=== PATIENT | male | born 1955 | race Caucasian/White ===

== ENCOUNTER 2016-11-22 15:16 | Emergency (ER) | payer OTHER ==
[2016-11-22 15:17] VITALS: BMI 25.0
[2016-11-22 15:21] VITALS: BP 134/91; TEMP 97
--- NOTE | 2016-11-22 15:27 | ED.PDOC ---
General ED Provider: Dr. RUBY ALVAREZ JR Chief Complaint: Chest Pain Stated Complaint: started having left sided non radiating chest pain also very dizzy with headache and weak[End]1 day ago HAS FELT CHEST PAIN ON AND OFF COMLETE LOSS OF ENERGY PAST COUPLE OF HOURS 97.0 77 18 94 134/91 12/15 Time Seen by Physician: 15:27 Mode of Arrival: Walk-In Information Source: Patient, Family Exam Limitations: No limitations Primary Care Provider: JAIMEE JARAMILLO Nursing and Triage Documentation Reviewed and Agree: No Review of Systems - Review Of Systems Constitutional: Reports: Malaise, Weakness Eyes: Reports: Blurred vision Ears, Nose, Mouth, Throat: Reports: No symptoms Respiratory: Reports: No symptoms Cardiac: Reports: Chest pain, Lightheadedness GI: Reports: No symptoms : Reports: No symptoms Musculoskeletal: Reports: No symptoms Skin: Reports: No symptoms Neurological: Reports: Headache, Weakness Endocrine: Reports: No symptoms Hematologic/Lymphatic: Reports: No symptoms All Other Systems: Other Past Medical History - Past Medical History Previously Healthy: Yes Endocrine: Reports: None Cardiovascular: Reports: CAD, [place] Respiratory: Reports: COPD Hematological: Reports: None Gastrointestinal: Reports: None Genitourinary: Reports: None Neuro/Psych: Reports: Migraine Musculoskeletal: Reports: Arthritis, Back Pain Cancer: Reports: Other - Surgical History General Surgical History: Reports: Orthopedic, Back Surgery - Family History Family History: Reports: Unknown - Social History Smoking Status: Current every day smoker, Heavy tobacco smoker Hx Substance Use: No Alcohol Screening: None Physical Exam - Physical Exam Appearance: Well-appearing Eyes: GENEVA, EOMI, Conjunctiva clear ENT: Ears normal, Nose normal, Oropharynx normal Neck: Supple Respiratory: Airway patent, Breath sounds clear, Breath sounds equal, Respirations nonlabored Cardiovascular: RRR, Pulses normal, No rub, No murmur GI/: Soft, Nontender, No masses, Bowel sounds normal, No Organomegaly Musculoskeletal: Normal strength, ROM intact, No edema, No calf tenderness Skin: Warm, Dry, Normal color Neurological: Sensation intact, Motor intact, Reflexes intact, Cranial nerves intact (TO TESTING), Alert, Oriented Psychiatric: Affect appropriate, Mood appropriate Interpretation - Radiology Interpretation Radiology Interpretation By: Radiologist Radiology Results: Negative Exam Interpreted: CXR - EKG Interpretation Time of EKG #1: 15:27 Rate: Normal Rhythm: Sinus Ectopy: None [place]: NL ST Segment: Normal Re-Evaluation - Re-Evaluation Time of Re-Evaluation: 17:16 (CALLING DR MARCUS MERCADO) Status: Improved - Re-Evaluation Time of Re-Evaluation: 18:28 (WAS FEELING"GREAT" NOW FEELING WEAK DIZZY( LIGHTHEADED) [place] [employer]- WILL OBTAIN REPEAT EKG) Status: Worse Physician Notification - Case Discussed Physician Notified: MARCUS MERCADO PAGED [id number] AT [id number]- ACCEPTS TO [facility] Time of Notification: 17:32 (PAGED) Critical Care Note - Critical Care Note Total Time (mins): 20 Course - Course Hematology/Chemistry: 11/22/16 15:26 11/22/16 15:26 Orders, Labs, Meds: Lab Review 11/22/16 15:26 WBC 11.91 H RBC 5.06 Hgb 14.9 Hct 43.5 MCV 86.0 MCH 29.4 MCHC 34.3 RDW Coeff of Izzy 12.6 Plt Count 215 Immature Gran % (Auto) 0.3 Neut % (Auto) 67.0 Lymph % (Auto) 22.7 Lipscomb % (Auto) 7.1 Eos % (Auto) 2.4 Baso % (Auto) 0.5 Immature Gran # (Auto) 0.0 Neut # 8.0 H Lymph # 2.7 Lipscomb # 0.8 Eos # 0.3 Baso # 0.1 D-Dimer 0.35 Sodium 138 Potassium 3.7 Chloride 105 Carbon Dioxide 23 Anion Gap 13.7 BUN 21 H Creatinine 0.85 Estimated GFR (MDRD) 91.00 BUN/Creatinine Ratio 24.70 Glucose 98 Calcium 9.2 Total Bilirubin 0.53 AST 25 ALT 36 Alkaline Phosphatase 106 Total Creatine Kinase 193 CK-MB (CK-2) 1.0 CK-MB (CK-2) % 0.23090 Troponin I 0.0200 B-Natriuretic Peptide 11 Total Protein 7.2 Albumin 3.8 Globulin 3.4 Albumin/Globulin Ratio 1.12 Plasma/Serum Alcohol < 10.0 Orders Category Date Time Status EKG-(ED ONLY) Stat CARDIO 11/22/16 15:23 Completed EKG-(ED ONLY) Stat CARDIO 11/22/16 18:27 Ordered ED SHAKER OPERATOR APPLIED .ONCE EMERGENCY 11/22/16 15:23 Active ED IV/MEDIPORT/POWERPORT .ONCE EMERGENCY 11/22/16 15:23 Active B-TYPE NATRIURETIC PEPTIDE Stat LAB 11/22/16 15:26 Completed CBC W/ AUTO DIFF Stat LAB 11/22/16 15:26 Completed COMPREHENSIVE METABOLIC PANEL Stat LAB 11/22/16 15:26 Completed CREATINE KINASE Stat LAB 11/22/16 15:26 Completed D-DIMER Stat LAB 11/22/16 15:26 Completed ETOH LEVEL [BLOOD ALCOHOL] Stat LAB 11/22/16 15:26 Completed TROPONIN I Stat LAB 11/22/16 15:26 Completed 0.9 % Sodium Chloride [Saline Flush] MEDS 11/22/16 15:23 Active 1 syr IVF PRN PRN CHEST, 1V AP ONLY Stat RADS 11/22/16 15:23 Completed Medications Generic Name Dose Route Start Last Admin Trade Name Freq PRN Reason Stop Dose Admin Sodium Chloride 1 syr 11/22/16 15:23 Saline Flush IVF PRN PRN To flush IV Vital Signs: Temp Pulse Resp BP Pulse Ox 11/22/16 15:17 97.0 F L 77 18 134/91 H 94 L JAREN Risk Score JAREN Risk Score: Risk Score Odds of by 30D 0 0.1 (0.1-0.2) 1 0.3 (0.2-0.3) 2 0.4 (0.3-0.5) 3 0.7 (0.6-0.9) 4 1.2 (1.0-1.5) 5 2.2 (1.9-2.6) 6 3.0 (2.5-3.6) 7 4.8 (3.8-6.1) Departure - Departure Time of Disposition: 18:16 Disposition: TSF SHORT-TRM HOSP Discharge Problem: Chest pain Condition: Good Pt referred to PMD for follow-up: Yes (MARCUS MERCADO) Allergies/Adverse Reactions: Allergies No Known Allergies Allergy (Verified 11/22/16 15:22) Home Medications: Ambulatory Orders Albuterol Sulfate [Proair Hfa] 2 puff IH QID PRN 07/08/13 Aspirin [Aspirin Chewable] 81 mg PO DAILY 07/08/13 Atorvastatin Calcium [Lipitor] 20 mg PO DAILY 07/08/13 Nitroglycerin [Nitrolingual] 4.9 gm TL PRN PRN 07/08/13 Nortriptyline HCl [Pamelor] 25 mg PO DAILY 07/08/13 Pregabalin [Lyrica] 150 mg PO BID 07/08/13 Esomeprazole Magnesium [Nexium 24Hr] 22.3 mg PO DAILY 08/17/16 Isosorbide Mononitrate [Imdur] 30 mg PO DAILY 08/17/16 Metoprolol Succinate [Toprol Xl] 50 mg PO DAILY 08/17/16 Multivit-Min/FA/Lycopene/Lut [Centrum Silver Tablet] 1 each PO DAILY 08/17/16 Ropinirole HCl [Requip] 0.25 mg PO BEDTIME 08/17/16 Cyclobenzaprine HCl [Flexeril] 10 mg PO TID PRN 08/21/16
[2016-11-22 15:35] LABS: BASOPHILS # (AUTO) 0.1 K/uL (0-0.2); BASOPHILS % (AUTO) 0.5 % (0.0-3.0); EOSINOPHILS # (AUTO) 0.3 K/ul (0.0-0.7); EOSINOPHILS % (AUTO) 2.4 % (0.0-7.0); HEMATOCRIT 43.5 % (42.0-52.0); HEMOGLOBIN 14.9 g/dl (14.0-18.0); IMMATURE GRANULOCYTE % (AUTO) 0.3 % (0.0-5.0); LYMPHOCYTES # (AUTO) 2.7 K/uL (0.60-3.4); LYMPHOCYTES % (AUTO) 22.7 (10.0-50.0); MEAN CORPUSCULAR HEMOGLOBIN 29.4 pg (27.0-31.0); MEAN CORPUSCULAR HGB CONC 34.3 (31.8-35.4); MONOCYTES # (AUTO) 0.8 K/uL (0.4-2.0); MONOCYTES % (AUTO) 7.1 (0-10); PLATELET COUNT 215 10^3/uL (140-440); RED BLOOD COUNT 5.06 10^6/ul (4.70-6.10); WHITE BLOOD COUNT 11.91 K/ul (4.2-10.2)
--- NOTE | 2016-11-22 15:42 | DI ---
EXAM: CHEST FRONTAL VIEW HISTORY: Chest pain. COMPARISON: 03/26/2013 FINDINGS: Heart size is within normal limits. No acute infiltrates are seen. There is no consolida tion, visible pleural fluid or pneumothorax. Bones reveal no acute fracture. IMPRESSION: No acute cardiopulmonary process.
[2016-11-22 16:11] LABS: ALBUMIN 3.8 g/dL (3.4-5.0); ALBUMIN/GLOBULIN RATIO 1.12; ANION GAP 13.7; BILIRUBIN,TOTAL 0.53 mg/dL (0.00-1.20); BUN/CREATININE RATIO 24.7; CALCIUM 9.2 mg/dL (8.2-10.2); CREATININE 0.85 mg/dL (0.60-1.10); POTASSIUM 3.7 mmol/L (3.5-5.1); TOTAL PROTEIN 7.2 g/dL (5.8-8.1); TROPONIN I 0.02 ng/ml (0.0000-0.4000)
== END 2016-11-22 18:44 | disposition short-term general hospital (02) ==
LOC: ED 15:16
DX: R07.9 Chest pain, unspecified (principal); R42 Dizziness and giddiness; R51 Headache; R53.1 Weakness; H53.8 Other visual disturbances; I25.10 Atherosclerotic heart disease of native coronary artery without angina pectoris; I25.2 Old myocardial infarction; F17.210 Nicotine dependence, cigarettes, uncomplicated; Z79.899 Other long term (current) drug therapy
CPT/HCPCS: 36415; 80053; 80307; 82550; 82553; 83880; 84484; 85025; 85379; 93005; 93010; 99285

== ENCOUNTER 2016-11-22 18:47 | Outpatient (CLI) | payer OTHER ==
[2016-11-22 15:17] VITALS: BMI 25.0
== END 2016-11-22 18:48 ==
LOC: AMBL 18:47
PROVIDERS: ATTEND Emergency Medicine
DX: R07.9 Chest pain, unspecified (principal); R55 Syncope and collapse

== ENCOUNTER 2017-09-21 10:39 | Emergency (ER) ==
[2017-09-21 10:39] VITALS: BMI 25.0
[2017-09-21 10:48] VITALS: BP 144/85; TEMP 97.1
[2017-09-21] MEDS ORDERED: BOOSTRIX IM ONE (11:08)
--- NOTE | 2017-09-21 11:25 | ED.PDOC ---
General ED Provider: Dr. RUBY ALVAREZ JR Chief Complaint: Bite Stated Complaint: dogs were fighting tried to break them apart bitten left hand 1x1cm dorsum left hand 5 puncture wounds.[End]97.1 94 16 93% 148/85 4/10 states had dt but no record in computer Time Seen by Physician: 11:32 Mode of Arrival: Walk-In Information Source: Patient Exam Limitations: No limitations Primary Care Provider: MARCUS MERCADO Nursing and Triage Documentation Reviewed and Agree: No Review of Systems - Review Of Systems Constitutional: Reports: No symptoms Eyes: Reports: No symptoms Ears, Nose, Mouth, Throat: Reports: No symptoms Respiratory: Reports: No symptoms Cardiac: Reports: No symptoms GI: Reports: No symptoms : Reports: No symptoms Musculoskeletal: Reports: Joint pain, Muscle pain Skin: Reports: Lesions Neurological: Reports: No symptoms Endocrine: Reports: No symptoms Hematologic/Lymphatic: Reports: No symptoms All Other Systems: Other Past Medical History - Past Medical History Previously Healthy: Yes Endocrine: Reports: None Cardiovascular: Reports: CAD, [place] Respiratory: Reports: COPD Hematological: Reports: None Gastrointestinal: Reports: None Genitourinary: Reports: None Neuro/Psych: Reports: Migraine Musculoskeletal: Reports: Arthritis, Back Pain Cancer: Reports: Other (bladder) Other Pertinent Past Medical History: Bladder Cancer - Surgical History General Surgical History: Reports: Stent ( STENTS X1), Orthopedic (BACK, ROTATOR CUFF,), Back Surgery - Family History Family History: Reports: Unknown - Social History Smoking Status: Current every day smoker, Heavy tobacco smoker Hx Substance Use: No Alcohol Screening: None Physical Exam - Physical Exam Appearance: Well-appearing Pain Distress: Moderate Neck: Supple Respiratory: Airway patent Musculoskeletal: Normal strength, ROM intact, No edema Skin: Warm, Dry (note lacerations) Critical Care Note - Critical Care Note Total Time (mins): 0 Course - Course Orders, Labs, Meds: Orders Category Date Time Status Diphth,Pertuss(Acell),Tet Vac [Boostrix] MEDS 09/21/17 11:08 Discontinued 0.5 ml IM .ONCE ONE Medications Discontinued Medications Generic Name Dose Route Start Last Admin Trade Name Freq PRN Reason Stop Dose Admin Diphtheria/Pertussis/Tetanus Vacc 0.5 ml 09/21/17 11:08 09/21/17 11:19 Boostrix IM 09/21/17 11:09 0.5 ml .ONCE ONE Administration Vital Signs: Temp Pulse Resp BP Pulse Ox 09/21/17 10:40 97.1 F L 94 H 16 144/85 H 93 L Departure - Departure Time of Disposition: 11:35 Disposition: HOME SELF-CARE Discharge Problem: Laceration of hand Dog bite of hand Qualifiers: Encounter type: initial encounter Laterality: left Qualified Code(s): S61.452A - Open bite of left hand, initial encounter; W54.0XXA - Bitten by dog, initial encounter; W54.0XXA - Bitten by dog, initial encounter Instructions: Animal Bite (ED), Laceration (ED), Laceration Without Closure (ED ) Condition: Good Pt referred to PMD for follow-up: Yes Additional Instructions: recheck next week call for follow up Augmentin for seven days elevate hand two hours twice a day Tylenol or ibuprofen for pain ultram for pain not controlled Prescriptions: Amoxicillin/Potassium Clav [Augmentin 875-125 mg Tab] 1 tab PO BIDWM #14 tablet Tramadol HCl [Ultram] 50 mg PO Q6H PRN #14 tablet PRN Reason: PAIN Allergies/Adverse Reactions: Allergies No Known Allergies Allergy (Verified 09/21/17 10:47) Home Medications: Ambulatory Orders Albuterol Sulfate [Proair Hfa] 2 puff IH QID PRN 07/08/13 Aspirin [Aspirin Chewable] 81 mg PO DAILY 07/08/13 Atorvastatin Calcium [Lipitor] 20 mg PO DAILY 07/08/13 Nitroglycerin [Nitrolingual] 4.9 gm TL PRN PRN 07/08/13 Nortriptyline HCl [Pamelor] 25 mg PO DAILY 07/08/13 Pregabalin [Lyrica] 150 mg PO BID 07/08/13 Esomeprazole Magnesium [Nexium 24Hr] 22.3 mg PO DAILY 08/17/16 Isosorbide Mononitrate [Imdur] 30 mg PO DAILY 08/17/16 Metoprolol Succinate [Toprol Xl] 50 mg PO DAILY 08/17/16 Multivit-Min/FA/Lycopen/Lutein [Centrum Silver Tablet] 1 each PO DAILY 08/17/16 Ropinirole HCl [Requip] 0.25 mg PO BEDTIME 08/17/16 Cyclobenzaprine HCl [Flexeril] 10 mg PO TID PRN 08/21/16 Amoxicillin/Potassium Clav [Augmentin 875-125 mg Tab] 1 tab PO BIDWM #14 tablet 09/21/17 Tramadol HCl [Ultram] 50 mg PO Q6H PRN #14 tablet 09/21/17
== END 2017-09-21 11:40 | disposition home or self-care (01) ==
LOC: ED 10:39
DX: S61.452A Open bite of left hand, initial encounter (principal); W54.0XXA Bitten by dog, initial encounter; F17.210 Nicotine dependence, cigarettes, uncomplicated
CPT/HCPCS: 90471; 90715; 99283

== ENCOUNTER 2018-03-08 14:20 | Emergency (ER) ==
[2018-03-08 14:31] VITALS: BP 111/61; TEMP 97.3; BMI 25.2
[2018-03-08] MEDS ORDERED: MORPHINE 4 MG/ML SYRINGE IM STA (14:48)
[2018-03-08] MEDS ORDERED: ZOFRAN 4 MG/2 ML IM STA (14:49)
--- NOTE | 2018-03-08 14:50 | ED.PDOC ---
General ED Provider: Dr. ARLETTE BEYER Chief Complaint: Back Pain Stated Complaint: low back pain after lifting Time Seen by Physician: 14:30 (lifting caused pain left lower back ) Mode of Arrival: Walk-In Information Source: Patient Exam Limitations: No limitations Primary Care Provider: MARCUS MERCADO Nursing and Triage Documentation Reviewed and Agree: Yes Reviewed sepsis parameters & appropriate labs ordered?: Yes System Inflammatory Response Syndrome: Not Applicable Sepsis Protocol: For patient's 13 years and over: Temp is 96.8 and below OR 101 and greater Pulse >90 BPM Resp >20/minute Acutely Altered Mental Status Are patient's symptoms suggestive of a new infection, such as: -Pneumonia -Skin, Soft Tissue -Endocarditis -UTI -Bone, Joint Infection -Implantable Device -Acute Abdominal Infection -Wound Infection -Meningitis -Blood Stream Catheter Infection -Unknown System Inflammatory Response Syndrome: Not Applicable Musculoskeletal Complaint Exam - Back Pain Complaint/Exam Mechanism of Injury: Reports: No known trauma, Other (lifting ) Onset/Duration: 5 hrs ago Symptoms Are: Still present Timing: Constant Episodes Lasting: Hours Initial Severity: Moderate Current Severity: Moderate Location: Reports: Discrete Character: Reports: Aching, Throbbing, Spasmodic, Stiffness Aggravating: Reports: Movements, Lifting, Bending, Walking Alleviating: Reports: Rest, Position Associated Signs and Symptoms: Reports: Flank pain (left). Denies: Swelling, Redness, Bruising, Fever, Weakness, Numbness, Tingling, Abdominal pain, Bladder incontinence, Bowel incontinence, Weight loss, Pain with weight bearing Related History: Reports: Similar episode TAD Risk Factors: Reports: None AAA Risk Factors: Reports: None Cauda Equina Risk Factors: Reports: None Epidural Abcess Risk Factors: Reports: None Related Surgical History: Reports: None Focal Tenderness: No Paraspinal Muscle Tenderness: No Paraspinal Muscle Spasm: No Scoliosis: No Lordosis: No Kyphosis: No SLR Test: Right Negative, Left Negative Hip Motion Testing Pain: Right Negative, Left Negative Focal Weakness: Present: None Focal Sensory Loss: Present: None Gait: Present: Normal Differential Diagnoses: Strain, Sprain Review of Systems - Review Of Systems Constitutional: Reports: No symptoms Eyes: Reports: No symptoms Ears, Nose, Mouth, Throat: Reports: No symptoms Respiratory: Reports: No symptoms Cardiac: Reports: No symptoms GI: Reports: No symptoms : Reports: No symptoms Musculoskeletal: Reports: Back pain Skin: Reports: No symptoms Neurological: Reports: No symptoms Endocrine: Reports: No symptoms Hematologic/Lymphatic: Reports: No symptoms All Other Systems: Reviewed and Negative Past Medical History - Past Medical History Previously Healthy: Yes Endocrine: Reports: None Cardiovascular: Reports: CAD, [place] Respiratory: Reports: COPD Hematological: Reports: None Gastrointestinal: Reports: None Genitourinary: Reports: None Neuro/Psych: Reports: Migraine Musculoskeletal: Reports: Arthritis, Back Pain Cancer: Reports: Other (bladder) Other Pertinent Past Medical History: Bladder Cancer - Surgical History General Surgical History: Reports: Stent ( STENTS X1), Orthopedic (BACK, ROTATOR CUFF,), Back Surgery - Family History Family History: Reports: Unknown - Social History Smoking Status: Current every day smoker, Light tobacco smoker Hx Substance Use: No Alcohol Screening: None Physical Exam - Physical Exam Appearance: Well-appearing, No pain distress, Well-nourished Eyes: GENEVA, EOMI, Conjunctiva clear ENT: Ears normal, Nose normal, Oropharynx normal Respiratory: Airway patent, Breath sounds clear, Breath sounds equal, Respirations nonlabored Cardiovascular: RRR, Pulses normal, No rub, No murmur GI/: Soft, Nontender, No masses, Bowel sounds normal, No Organomegaly Musculoskeletal: Normal strength, ROM intact, No edema, No calf tenderness Skin: Warm, Dry, Normal color Neurological: Sensation intact, Motor intact, Reflexes intact, Cranial nerves intact, Alert, Oriented Psychiatric: Affect appropriate, Mood appropriate Critical Care Note - Critical Care Note Total Time (mins): 0 Course - Course Vital Signs: Temp Pulse Resp BP Pulse Ox 03/08/18 14:21 97.3 F L 90 20 111/61 94 L Departure - Departure Time of Disposition: 14:51 Disposition: HOME SELF-CARE Discharge Problem: Backache Low back pain Qualifiers: Chronicity: unspecified Back pain laterality: unspecified Sciatica presence: without sciatica Qualified Code(s): M54.5 - Low back pain Instructions: Back Pain (ED) Condition: Good Pt referred to PMD for follow-up: Yes IPMP verified?: No Additional Instructions: Please call your Family Physician as soon as possible to schedule a follow-up appointment. Allergies/Adverse Reactions: Allergies No Known Allergies Allergy (Verified 03/08/18 14:25) Home Medications: Ambulatory Orders Albuterol Sulfate [Proair Hfa] 2 puff IH QID PRN 07/08/13 Aspirin [Aspirin Chewable] 81 mg PO DAILY 07/08/13 Atorvastatin Calcium [Lipitor] 20 mg PO BEDTIME 07/08/13 Nitroglycerin [Nitrolingual] 4.9 gm TL PRN PRN 07/08/13 Nortriptyline HCl [Pamelor] 25 mg PO BEDTIME 07/08/13 Pregabalin [Lyrica] 150 mg PO BID 07/08/13 Esomeprazole Magnesium [Nexium 24Hr] 22.3 mg PO DAILY 08/17/16 Isosorbide Mononitrate [Imdur] 30 mg PO DAILY 08/17/16 Metoprolol Succinate [Toprol Xl] 50 mg PO BEDTIME 08/17/16 Multivit-Min/FA/Lycopen/Lutein [Centrum Silver Tablet] 1 each PO DAILY 08/17/16 Ropinirole HCl [Requip] 0.25 mg PO BEDTIME 08/17/16 Cyclobenzaprine HCl [Flexeril] 10 mg PO TID PRN 08/21/16 Oxycodone HCl/Acetaminophen [Percocet 5-325 mg Tablet] 1 each PO 2-4XD PRN 03/08
== END 2018-03-08 15:41 | disposition home or self-care (01) ==
LOC: ED 14:20
DX: M54.5 Low back pain (principal); X50.9XXA Other and unspecified overexertion or strenuous movements or postures, initial encounter
CPT/HCPCS: 96372; 99282